=== PATIENT | male | born 1995 | race American Indian/Alaskan Native ===

== ENCOUNTER 2017-03-12 16:36 | Emergency (ER) | payer SELFPAY ==
[2017-03-12 16:41] VITALS: BMI 41.3
[2017-03-12 16:44] VITALS: BP 125/65; PULSE 84; RESP 18; TEMP 97.9; O2SAT 99
--- NOTE | 2017-03-12 16:50 | ED PDOC ---
Arrival/HPI - General Chief Complaint: Allergic Reaction Time Seen by Provider: 03/12/17 16:45 Historian: Patient - History of Present Illness Narrative History of Present Illness (Text): 03/12/17 16:47 21 y/o male, no pmh, nkda, c/o itching rash on the arms/leg/body x 1 week s/p taking the tessalon pearls for the first time. Pt. stated that he was having mild coughing which cleared up now with the tessalon, been developing generalized itching rash, relief with the benadryl but return back, no fever or chills, no headache or night sweat, no slurred speech, no difficulty swallowing , no other medical or psychological complaints. Past Medical History - Provider Review Nursing Documentation Reviewed: Yes - Past History Past History: No Previous - Infectious Disease Hx of Infectious Diseases: None - Tetanus Immunization Tetanus Immunization: Unknown - Psychiatric Hx Depression: No Hx Emotional Abuse: No Hx Physical Abuse: No Hx Substance Use: No - Past Surgical History Past Surgical History: No Previous - Anesthesia Hx Anesthesia: No - Suicidal Assessment Feels Threatened In Home Enviroment: No Family/Social History - Physician Review Nursing Documentation Reviewed: Yes Family/Social History: Unknown Family HX Smoking Status: Never Smoked Hx Alcohol Use: No Hx Substance Use: No Hx Substance Use Treatment: No Allergies/Home Meds Allergies/Adverse Reactions: Allergies almond Allergy (Verified 03/12/17 16:41) ANAPHYLAXIS Home Medications: Home Meds Medication Instructions Recorded Confirmed DiphenhydrAMINE [Benadryl] 50 mg PO DAILY 03/12/17 03/12/17 Review of Systems - Review of Systems Constitutional: absent: Fatigue, Fevers ENT: absent: Sore Throat Respiratory: absent: SOB, Cough, Sputum, Wheezing Cardiovascular: absent: Chest Pain Gastrointestinal: absent: Abdominal Pain, Diarrhea, Nausea, Vomiting Skin: Rash, Pruritis, Skin Lesions. absent: Laceration, Abscess, Ulcer, Cellulitis Neurological: absent: Headache, Dizziness, Speech Changes, Seizure Hemo/Lymphatic: absent: Adenopathy Physical Exam Vital Signs Reviewed: Yes Vital Signs Temp Pulse Resp BP Pulse Ox 03/12/17 16:42 97.9 F 84 18 125/65 99 Temperature: Afebrile Blood Pressure: Normal Pulse: Regular Respiratory Rate: Normal Appearance: Positive for: Well-Appearing, Non-Toxic, Comfortable Pain Distress: None Mental Status: Positive for: Alert and Oriented X 3 - Systems Exam Head: Present: Atraumatic, Normocephalic Pupils: Present: PERRL Ears: Present: NORMAL TM, Normal Canal. No: Erythema Mouth: Present: Moist Mucous Membranes, Drooling Pharnyx: No: ERYTHEMA, EXUDATE, TONSILS ENLARGED Nose (External): Present: Atraumatic. No: Abrasion, Contusion, Laceration Nose (Internal): Present: Normal Inspection, No Active Bleeding. No: Engorged, Edematous, Rhinorrhea, Septal Deviation, Epistaxis Neck: Present: Trachea Midline. No: Lymphadenopathy Respiratory/Chest: Present: Clear to Auscultation, Good Air Exchange, Respiratory Distress. No: Wheezes, Decreased Breath Sounds, Rales, Retracting Cardiovascular: Present: Regular Rate and Rhythm, Normal S1, S2 Abdomen: Present: Normal Bowel Sounds. No: Tenderness, Distention Upper Extremity: Present: Normal Inspection Lower Extremity: Present: Normal Inspection Neurological: Present: Speech Normal, Motor Func Grossly Intact, Gait Normal, Memory Normal Skin: Present: Warm, Dry, Rashes (visible scattered resolving hives noted on the bilateral upper extremities and posterior trunk/anterior chest), Normal Color Medical Decision Making ED Course and Treatment: 03/12/17 16:51 -pepcid and prednisone ordered. -Pt. refused benadryl or any antihistamine. -Pt. wishes to be discharged. -Discharge home with zyrtec, pepcid, prednisone, discontinue the tessalon at home, stay hydrated, keep the skin cool and dry, follow up with your own pmd and pricing clerk within 2 days, return to the ER for any new or worsening signs or symptoms - Medication Orders Current Medication Orders: Discontinued Medications Famotidine (Pepcid) 20 mg PO STAT STA Stop: 03/12/17 16:46 Prednisone (Prednisone Tab) 60 mg PO STAT ONE Stop: 03/12/17 16:46 - PA / BACK SHOE OPERATOR / Resident Statement /DO has reviewed & agrees with the documentation as recorded. Disposition/Present on Arrival - Present on Arrival Any Indicators Present on Arrival: No History of DVT/PE: No History of Uncontrolled Diabetes: No Urinary Catheter: No History of Decub. Ulcer: No History Surgical Site Infection Following: None - Disposition Have Diagnosis and Disposition been Completed?: Yes Diagnosis: Allergic reaction Disposition: HOME/ ROUTINE Disposition Time: 16:53 Patient Plan: Discharge Condition: GOOD Additional Instructions: Discharge home with zyrtec, pepcid, prednisone, discontinue the tessalon at home , stay hydrated, keep the skin cool and dry, follow up with your own pmd and pricing clerk within 2 days, return to the ER for any new or worsening signs or symptoms Prescriptions: Cetirizine HCl [Zyrtec] 10 mg PO DAILY #10 tab.rapdis Famotidine [Pepcid] 20 mg PO BID #10 tab predniSONE [Prednisone] 2 tab PO DAILY #8 tab Referrals: Luisa Rangel MD [Staff Provider] - [place] up [place] primary [facility] [place] - Follow up with primary Forms: WORK NOTE
== END 2017-03-12 17:26 | disposition home or self-care (01) ==
LOC: ED 16:36
DX: T78.49XA Other allergy, initial encounter (principal); X58.XXXA Exposure to other specified factors, initial encounter

== ENCOUNTER 2017-07-10 03:36 | Emergency (ER) | payer SELFPAY ==
[2017-07-10 03:37] VITALS: BMI 41.3
--- NOTE | 2017-07-10 03:42 | ED PDOC ---
Arrival/HPI - General Chief Complaint: Suture/Staple Removal Time Seen by Provider: 07/10/17 03:40 Historian: Patient - History of Present Illness Narrative History of Present Illness (Text): 07/10/17 03:42 Jose Enrique Rodriguez is a 21 year old male who presents to the Emergency department for suture removal tonight. Patient states he had a laceration repair performed to his right 2nd finger and right palm 1 week ago at another institution. Patient now presents tonight requesting suture removal. Patient denies any decreased ROM, weakness/numbness/tingling in the extremity, swelling/erythema to wound site, or any other complaints. Time/Duration: 1 week Symptom Onset: Gradual Symptom Course: Unchanged Activities at Onset: Light Context: Home Past Medical History - Provider Review Nursing Documentation Reviewed: Yes - Past History Past History: No Previous - Infectious Disease Hx of Infectious Diseases: None - Tetanus Immunization Tetanus Immunization: Unknown - Cardiac Hx Cardiac Disorders: No - Pulmonary Hx Respiratory Disorders: No - Neurological Hx Neurological Disorder: No - HEENT Hx HEENT Disorder: No - Renal Hx Renal Disorder: No - Endocrine/Metabolic Hx Endocrine Disorders: No - Hematological/Oncological Hx Blood Disorders: No - Integumentary Hx Dermatological Disorder: No - Musculoskeletal/Rheumatological Hx Musculoskeletal Disorders: No - Gastrointestinal Hx Gastrointestinal Disorders: No - Genitourinary/Gynecological Hx Genitourinary Disorders: No - Psychiatric Hx Psychophysiologic Disorder: No Hx Depression: No Hx Emotional Abuse: No Hx Physical Abuse: No Hx Substance Use: No - Past Surgical History Past Surgical History: No Previous - Anesthesia Hx Anesthesia: No - Suicidal Assessment Feels Threatened In Home Enviroment: No Family/Social History - Physician Review Nursing Documentation Reviewed: Yes Family/Social History: Unknown Family HX Smoking Status: Never Smoked Hx Alcohol Use: No Hx Substance Use: No Hx Substance Use Treatment: No Allergies/Home Meds Allergies/Adverse Reactions: Allergies almond Allergy (Verified 03/12/17 16:41) ANAPHYLAXIS Home Medications: Home Meds Medication Instructions Recorded Confirmed DiphenhydrAMINE [Benadryl] 50 mg PO DAILY 03/12/17 03/12/17 Review of Systems - Physician Review All systems were reviewed & negative as marked: Yes - Review of Systems Constitutional: Normal. absent: Fevers Eyes: Normal ENT: Normal Respiratory: Normal. absent: SOB, Cough Cardiovascular: Normal. absent: Chest Pain Gastrointestinal: Normal. absent: Abdominal Pain, Diarrhea, Nausea, Vomiting Genitourinary Male: Normal. absent: Dysuria, Frequency, Hematuria, Urinary Output Changes Musculoskeletal: Normal. absent: Back Pain, Neck Pain Skin: Other (+suture removal). absent: Rash Neurological: Normal Endocrine: Normal Hemo/Lymphatic: Normal Psychiatric: Normal Physical Exam Vital Signs Reviewed: Yes Vital Signs Temp Pulse Resp BP Pulse Ox 07/10/17 03:47 97.9 F 79 18 144/95 H 99 Temperature: Afebrile Blood Pressure: Normal Pulse: Regular Respiratory Rate: Normal Appearance: Positive for: Well-Appearing, Non-Toxic, Comfortable Pain Distress: None Mental Status: Positive for: Alert and Oriented X 3 - Systems Exam Head: Present: Atraumatic, Normocephalic Pupils: Present: PERRL Extroacular Muscles: Present: EOMI Conjunctiva: Present: Normal Mouth: Present: Moist Mucous Membranes Neck: Present: Normal Range of Motion Upper Extremity: Present: Normal ROM, NORMAL PULSES, Neurovascularly Intact, Capillary Refill < 2s, Other (Sutures present in right 2nd digit and palm. Wound clean, dry, and well-healed.). No: Cyanosis, Edema, Tenderness, Swelling , Erythema, Temperature Abnormalties, Deformity Lower Extremity: Present: Normal Inspection Neurological: Present: GCS=15, CN II-XII Intact, Speech Normal Skin: Present: Warm, Dry, Normal Color. No: Rashes Psychiatric: Present: Alert, Oriented x 3, Normal Insight, Normal Concentration Medical Decision Making ED Course and Treatment: 07/10/17 03:42 Impression: 21 year old male presents for right hand laceration suture removal Differential Diagnosis included but are not limited to: suture removal Plan: -- Suture Removal -- Reassess and disposition Progress Notes: 07/10/17 03:51 PROCEDURE: SUTURE REMOVAL Performed by the emergency provider Location: right 2nd digit, right palm Distal CMS: Normal. No deficits. Neurovascularly intact. Preparation: The wound was cleaned with NS and [place]. The area was prepped and draped in the usual sterile fashion. Procedure: Sutures were removed. Post-Procedure: Good closure and hemostasis. The patient tolerated the procedure well and there were no complications. CSM remains intact. On reevaluation the patient feels better and is in no acute distress. Patient is stable for discharge. Patient was instructed to follow up with physician/ clinic in 1-2 days or return if symptoms persist/worsen or new concerning symptoms arise. - Scribe Statement The provider has reviewed the documentation as recorded by the Kannan Anguiano Provider Scribe Attestation: All medical record entries made by the Scribe were at my direction and personally dictated by me. I have reviewed the chart and agree that the record accurately reflects my personal performance of the history, physical exam, medical decision making, and the department course for this patient. I have also personally directed, reviewed, and agree with the discharge instructions and disposition. Disposition/Present on Arrival - Present on Arrival Any Indicators Present on Arrival: No History of DVT/PE: No History of Uncontrolled Diabetes: No Urinary Catheter: No History of Decub. Ulcer: No History Surgical Site Infection Following: None - Disposition Have Diagnosis and Disposition been Completed?: Yes Diagnosis: Visit for suture removal Disposition: HOME/ ROUTINE Disposition Time: 04:00 Condition: GOOD Discharge Instructions (ExitCare): Chronic Wound Care (ED) Forms: [facility] (Portuguese), SCHOOL NOTE
[2017-07-10 03:47] VITALS: BP 144/95; PULSE 79; RESP 18; TEMP 97.9; O2SAT 99
== END 2017-07-10 03:56 | disposition home or self-care (01) ==
LOC: ED 03:36
DX: Z48.02 Encounter for removal of sutures (principal)

== ENCOUNTER 2019-02-19 19:57 | Emergency (ER) | payer SELFPAY ==
[2019-02-19 20:18] VITALS: BMI 39.9
[2019-02-19 20:24] VITALS: BP 164/95; PULSE 96; RESP 18; TEMP 98.3; O2SAT 97
--- NOTE | 2019-02-19 21:18 | ED PDOC ---
Arrival/HPI - General Chief Complaint: Finger,Hand,&Wrist Time Seen by Provider: 02/19/19 20:05 - History of Present Illness Narrative History of Present Illness (Text): 02/19/19 21:16 23-year-old male presents to the emergency room for pain to the right hand, states at work 5 days ago with a box full of metal fell on his right hand, since then he has been having pain. Otherwise he reports no numbness, decrease in range of motion, swelling, bruising or any other injury. Patient has no additional complaints. Past Medical History - Past History Past History: No Previous - Infectious Disease Hx of Infectious Diseases: None - Tetanus Immunization Tetanus Immunization: Unknown - Cardiac Hx Cardiac Disorders: No - Pulmonary Hx Respiratory Disorders: No - Neurological Hx Neurological Disorder: No - HEENT Hx HEENT Disorder: No - Renal Hx Renal Disorder: No - Endocrine/Metabolic Hx Endocrine Disorders: No - Hematological/Oncological Hx Blood Disorders: No - Integumentary Hx Dermatological Disorder: No - Musculoskeletal/Rheumatological Hx Musculoskeletal Disorders: No - Gastrointestinal Hx Gastrointestinal Disorders: No - Genitourinary/Gynecological Hx Genitourinary Disorders: No - Psychiatric Hx Psychophysiologic Disorder: No Hx Depression: No Hx Emotional Abuse: No Hx Physical Abuse: No Hx Substance Use: No - Past Surgical History Past Surgical History: No Previous - Anesthesia Hx Anesthesia: No - Suicidal Assessment Feels Threatened In Home Enviroment: No Family/Social History Family/Social History: No Known Family HX Smoking Status: Never Smoked Hx Alcohol Use: No Hx Substance Use: No Hx Substance Use Treatment: No Allergies/Home Meds Allergies/Adverse Reactions: Allergies almond Allergy (Verified 03/12/17 16:41) ANAPHYLAXIS Home Medications: Home Meds Medication Instructions Recorded Confirmed DiphenhydrAMINE [Benadryl] 50 mg PO DAILY 03/12/17 03/12/17 Review of Systems - Review of Systems Constitutional: absent: Fatigue, Fevers Musculoskeletal: Arthralgias. absent: Back Pain, Neck Pain, Joint Swelling Skin: absent: Rash, Skin Lesions Physical Exam Vital Signs Temp Pulse Resp BP Pulse Ox 02/19/19 20:23 98.3 F 96 H 18 164/95 H 97 Temperature: Afebrile Blood Pressure: Hypertensive Pulse: Regular Respiratory Rate: Normal Appearance: Positive for: Well-Appearing, Non-Toxic, Comfortable Pain Distress: None Mental Status: Positive for: Alert and Oriented X 3 - Systems Exam Upper Extremity: Present: Normal Inspection, Normal ROM, NORMAL PULSES, Tenderness (+ Mild tenderness to palpation over the right fifth metacarpal), Neurovascularly Intact, Norm 2-Pt Discrimination. No: Cyanosis, Edema, Swelling, Erythema, Temperature Abnormalties, Capillary Refill < 2s, Deformity Neurological: Present: GCS=15, CN II-XII Intact, Speech Normal, Motor Func Grossly Intact, Normal Sensory Function Skin: Present: Warm, Dry, Normal Color. No: Rashes Psychiatric: Present: Alert, Oriented x 3, Normal Insight, Normal Concentration Medical Decision Making ED Course and Treatment: 02/19/19 21:18 XR right hand: no fracture, no dislocation, as read by PA Patient advised that official radiology read of XR is still pending and will call the patient if there is any discrepancy within 24 hours. X-ray results discussed with the patient in great detail. Diagnosis of contusion discussed with the patient. Tristin wrap applied. Advised the patient to keep hand elevated and to apply ice. Advised to follow up with Workmen's Compensation in 1-2 days without fail. Advised to take [id number] Motrin or Aleve as needed for pain. Return to the emergency room at any time for any new or worsening symptoms. Patient states he fully agrees with and understands discharge instructions. States that he agrees with the plan and disposition. Verbalized and repeated discharge instructions and plan. I have given the patient opportunity to ask any additional questions. - RAD Interpretation Radiology Orders: 02/19/19 20:33 HAND RIGHT 3 VIEWS [RAD] Stat - PA / FRINGE MAKER / Resident Statement MD/DO has reviewed & agrees with the documentation as recorded. Disposition/Present on Arrival - Present on Arrival Any Indicators Present on Arrival: No History of DVT/PE: No History of Uncontrolled Diabetes: No Urinary Catheter: No History of Decub. Ulcer: No History Surgical Site Infection Following: None - Disposition Have Diagnosis and Disposition been Completed?: Yes Diagnosis: Contusion of right hand Disposition: HOME/ ROUTINE Disposition Time: 21:15 Patient Plan: Discharge Condition: STABLE Discharge Instructions (ExitCare): Contusion (DC) Additional Instructions: Thank you for letting us take care of you today. You were treated for right hand contusion. The emergency medical care you received today was directed at your acute symptoms. If you were prescribed any medication, please fill it and take as directed. It may take several days for your symptoms to resolve. Return to the Emergency Department if your symptoms worsen, do not improve, or if you have any other problems. Please contact your doctor in 2 days for re-evaluation and follow up / or call one of the physicians/clinics you have been referred to that are listed on the Patient Visit Information form that is included in your discharge packet. Bring any paperwork you were given at discharge with you along with any medications you are taking to your follow up visit. Our treatment cannot replace ongoing medical care by a primary care provider (PCP) outside of the emergency department. Thank you for allowing the [facility] team to be part of your care today. If you had an X-Ray : A Radiologist will review the ED reading if any change in treatment is needed we will contact you. Referrals: Matthew Chi, [Staff Provider] - Follow up with primary Forms: [email or web address] (Setswana), WORK NOTE
--- NOTE | 2019-02-20 08:46 | RAD ---
PROCEDURE: Right Hand Radiographs. HISTORY: pain COMPARISON: None. TECHNIQUE: 3 views obtained. FINDINGS: BONES: No acute fracture or destructive bony lesion identified. JOINTS: Normal. No osteoarthritic changes. SOFT TISSUES: Normal. OTHER FINDINGS: None. IMPRESSION: Unremarkable right hand radiographs.
== END 2019-02-19 21:44 | disposition home or self-care (01) ==
LOC: ED 19:57
DX: S60.221A Contusion of right hand, initial encounter (principal); W22.8XXA Striking against or struck by other objects, initial encounter; Y92.89 Other specified places as the place of occurrence of the external cause; Y99.0 Civilian activity done for income or pay